=== PATIENT | female | born 1955 | race Caucasian/White ===

== ENCOUNTER 2021-06-28 07:56 | Day surgery (SDC) | payer OTHER, MEDICARE ==
[~2021-06-28] VITALS: Ht 170.2 cm; Wt 79.9 kg
[~2021-06-28 07:56] MED LIST: ASPIRIN 81M81 MG/TA2 PO; ATROVENT INHALE14 GM IH; ATROVENT NASAL15 ML NS; CALCIUM600 MG PO; CHERATUSSIN AC120 ML PO; DUO-KAPS1 CAP PO; FLONASE NASAL S16 GM NS; GLUCOSAMINE & C1 CA2 PO; HYGROTON25 MG PO; MUCINEX D1 TER PO; NAPROSYN 2250 MG/TAB PO; NAPROSYN500 MG PO; PREVACID 15MG15 M1 PO; PROAIR HFA0.09 MG/AC IH; RT ADVAIR 228 DISKUS IH; SINGULAIR 110 MG/TAB PO; ZANTAC 150MG T150 MG PO; ZANTAC 7575 MG PO; ZYRTEC 10MG10 MG PO
[2021-06-28 08:40] VITALS: BP 155/86; PULSE 75; TEMP 97.6
[2021-06-28] MEDS ORDERED: CALCIUM-MAGNES1 EAC1 PO (09:22)
[2021-06-28] MEDS ORDERED: 00186-0370-20 IH (09:24)
[2021-06-28] MEDS ORDERED: SINGULAIR 110 MG/TAB PO (09:24)
[2021-06-28] MEDS ORDERED: MUCINEX D1 TER PO (09:26)
[2021-06-28] MEDS ORDERED: VITAMIN D31000 I1 PO (09:27)
[2021-06-28] MEDS ORDERED: TESSALON P100 MG/CAP PO (09:27)
[2021-06-28] MEDS ORDERED: ALIVE PRENATAL1 EACH PO (09:28)
[2021-06-28] MEDS ORDERED: TYLENOL 8 HR PO (09:28)
[2021-06-28] MEDS ORDERED: NAPROSYN500 MG PO (09:28)
[2021-06-28 10:25] VITALS: BP 136/90; PULSE 71
--- NOTE | 2021-06-28 10:25 | NUR ---
The patient arrived back to [facility] from the operating room at this time. The paitent appears alert and oriented and denies any pain or nausea at this time. Post operative vital signs were started at this time. The patient agrees to try some orange juice and coffee at this time. The patient has a coban dressing and post op shoe in place to his left foot that appear intact. is at her bedside at this time. Will continue to monitor the patient.
[2021-06-28 10:40] VITALS: BP 138/77; PULSE 75
--- NOTE | 2021-06-28 10:40 | NUR ---
The patient appears to be tolerating the drinks well and denies wanting anything further at this time. Dr. Enriquez is at the patient's bedside speaking with her and her .
[2021-06-28 10:55] VITALS: BP 137/75; PULSE 75
--- NOTE | 2021-06-28 10:55 | NUR ---
The patient voices a desire to be discharged home. The patient's IV to her right hand was removed and a pressure dressing was applied to the site. The nurse assisted the patient to get dressed and she appeared to tolerate the activity well.
--- NOTE | 2021-06-28 11:05 | NUR ---
Discharge instructions were reviewed with the patient and her at this time. They both verbalized understanding and have no questions for the nurse at this time. The patient is dressed and ready to be escorted ou.t
--- NOTE | 2021-06-28 11:15 | NUR ---
The [facility] The patient's belongings and discharge paperwork were sent with her. The patient's is present to drive her home.
== END 2021-06-28 11:15 | disposition home or self-care (01) ==
LOC: SDCO 07:56
DX: G57.62 Lesion of plantar nerve, left lower limb (principal); I10 Essential (primary) hypertension; R05.3 Chronic cough; J45.909 Unspecified asthma, uncomplicated; M19.90 Unspecified osteoarthritis, unspecified site; F41.8 Other specified anxiety disorders; Z85.828 Personal history of other malignant neoplasm of skin; Z79.51 Long term (current) use of inhaled steroids; Z79.899 Other long term (current) drug therapy; Z79.82 Long term (current) use of aspirin
CPT/HCPCS: J0690; J2704; J3010; J7120